=== PATIENT | female | born 1950 | race Caucasian/White ===

== ENCOUNTER 2018-05-14 16:37 | Inpatient (IN) | payer MEDICARE ==
[~2018-05-14] VITALS: Ht 165.1 cm; Wt 82.2 kg
[2018-05-14 17:16] LABS: BASOPHILS # (AUTO) 0.1 X10'3 (0-0.2); BASOPHILS % (AUTO) 0.7 % (0-1); EOSINOPHILS # (AUTO) 0.8 X10'3 (0-0.9); EOSINOPHILS % (AUTO) 7.4 % (0-6); HEMATOCRIT 36.4 % (35.0-45.0); HEMOGLOBIN 12.1 g/dl (12.0-16.0); MEAN CORPUSCULAR HEMOGLOBIN 27.5 PG (27.0-31.0); MEAN CORPUSCULAR HGB CONC 33.2 g/dL (33.0-36.5); MEAN CORPUSCULAR VOLUME 82.9 FL (78-98); MEAN PLATELET VOLUME 7.1 FL (7.4-10.4); MONOCYTES # (AUTO) 0.8 X10'3 (0-0.9); MONOCYTES % (AUTO) 7.5 % (2-12); NEUTROPHILS # (AUTO) 7.5 X10'3 (1.8-7.7); NEUTROPHILS % (AUTO) 66.4 % (42-75); PLATELET COUNT 425 X10'3 (140-440); RED BLOOD COUNT 4.39 X10'6 (4.20-5.60); WHITE BLOOD COUNT 11.3 X10'3 (4.5-11.0)
[2018-05-14 17:32] LABS: ALANINE AMINOTRANSFERASE 24 U/L (12-78); ALBUMIN 3.5 G/DL (3.4-5.0); ALBUMIN/GLOBULIN RATIO 0.9 (1.1-1.5); ALKALINE PHOSPHATASE 139 IU/L (46-116); ANION GAP 16 (8-16); ASPARTATE AMINO TRANSFERASE 19 U/L (10-37); BILIRUBIN,TOTAL 0.2 MG/DL (0.1-1.0); BLOOD UREA NITROGEN 24 MG/DL (7-18); CALCIUM 10.1 MG/DL (8.5-10.1); CHLORIDE 102 MMOL/L (99-107); CREATININE 1.09 MG/DL (0.40-0.90); GLUCOSE 181 MG/DL (70-104); POTASSIUM 4.4 MMOL/L (3.5-5.1); SODIUM 141 MMOL/L (135-145); TOTAL CARBON DIOXIDE 23.5 MMOL/L (24-32); TOTAL PROTEIN 7.4 G/DL (6.4-8.2); eGFR 50 ML/MIN
[2018-05-14 17:37] LABS: PARTIAL THROMBOPLASTIN TIME 26 SECONDS (22-32)
[2018-05-14] MEDS ORDERED: METF500T PO (20:59)
[2018-05-14] MEDS ORDERED: magnesium hydroxide 30ml (MOM) UD suspension PO PRN (22:30)
[2018-05-14] MEDS ORDERED: mag hydrox/Alum hydrox/simeth 30ml oral suspension PO PRN (22:30)
[2018-05-14] MEDS ORDERED: ondansetron/PF 4mg/2ml inj IV PRN (22:30)
[2018-05-14] MEDS ORDERED: acetaminophen 325mg tablet PO PRN (22:30)
[2018-05-14] MEDS ORDERED: dextrose ORAL solution 15 GM/59 ML bottle PO PRN ×2 (22:45)
[2018-05-14] MEDS ORDERED: glucagon, human recombinant 1mg kit SUBCUT PRN (22:45)
[2018-05-14] MEDS ORDERED: MESSAGE TO PHARMACY PO ONE (22:45)
[2018-05-14] MEDS ORDERED: dextrose 50%-water 50ml dispensing syringe IV PRN ×2 (22:45)
[2018-05-14] MEDS ORDERED: insulin Lispro (HumaLOG) vial - multi-dose SQ SCH (22:45)
--- NOTE | 2018-05-14 23:30 | NUR ---
ADMITTED A 67 Y.O. FEMALE FROM ER PER [facility] TO ROOM 346 B.
[2018-05-14 23:45] VITALS: BP 144/66
[2018-05-14 23:48] LABS: HEMOGLOBIN A1C 8.6 % (4.5-6.2)
[2018-05-15] VITALS (11 sets, daily range): BP systolic 123–149; BP diastolic 68–83
[2018-05-15 05:36] LABS: BASOPHILS # (AUTO) 0.1 X10'3 (0-0.2); BASOPHILS % (AUTO) 0.7 % (0-1); EOSINOPHILS # (AUTO) 0.9 X10'3 (0-0.9); EOSINOPHILS % (AUTO) 8.5 % (0-6); HEMOGLOBIN 11.6 g/dl (12.0-16.0); LYMPHOCYTES # (AUTO) 2.3 X10'3 (1.1-4.8); LYMPHOCYTES % (AUTO) 20.8 % (21-51); MEAN CORPUSCULAR HEMOGLOBIN 27.4 PG (27.0-31.0); MEAN CORPUSCULAR VOLUME 83.1 FL (78-98); MEAN PLATELET VOLUME 7.2 FL (7.4-10.4); MONOCYTES % (AUTO) 9.5 % (2-12); NEUTROPHILS # (AUTO) 6.6 X10'3 (1.8-7.7); NEUTROPHILS % (AUTO) 60.5 % (42-75); PLATELET COUNT 404 X10'3 (140-440); RED BLOOD COUNT 4.22 X10'6 (4.20-5.60); RED CELL DISTRIBUTION WIDTH 14.1 % (11.5-14.5)
[2018-05-15 05:48] LABS: ALANINE AMINOTRANSFERASE 23 U/L (12-78); ALBUMIN 3.3 G/DL (3.4-5.0); ALBUMIN/GLOBULIN RATIO 0.9 (1.1-1.5); ALKALINE PHOSPHATASE 138 IU/L (46-116); ANION GAP 9 (8-16); ASPARTATE AMINO TRANSFERASE 17 U/L (10-37); BILIRUBIN,TOTAL 0.3 MG/DL (0.1-1.0); BLOOD UREA NITROGEN 22 MG/DL (7-18); BUN/CREATININE RATIO 25.9 (6.6-38.0); CHLORIDE 105 MMOL/L (99-107); CHOL/HDL RATIO 7.1 (0.00-4.99); CHOLESTEROL 214 MG/DL (0-200); CREATININE 0.85 MG/DL (0.40-0.90); GLUCOSE 141 MG/DL (70-104); HDL CHOLESTEROL 30 MG/DL (35-60); LDL CHOLESTEROL 139 MG/DL (50-100); POTASSIUM 4.5 MMOL/L (3.5-5.1); SODIUM 141 MMOL/L (135-145); TOTAL CARBON DIOXIDE 27.4 MMOL/L (24-32); TOTAL PROTEIN 7.1 G/DL (6.4-8.2); TRIGLYCERIDES 267 MG/DL (20-135); eGFR 67 ML/MIN
--- NOTE | 2018-05-15 06:15 | NUR ---
Problems reprioritized. Patient report given, questions answered & plan of care reviewed with HOA MILLS.
--- NOTE | 2018-05-15 07:17 | NUR ---
Patient in room [facility]. I have received report from Harman MILLS and had the opportunity to ask questions and assume patient care.
[2018-05-15] MEDS: heparin, porcine 5000 units/ml vial SQ SCH ×2 (08:18→20:07)
[2018-05-15] MEDS ORDERED: regadenoson 0.4mg/5ml syringe IV ONE ×2 (09:15→10:00)
[2018-05-15] MEDS ORDERED: aminophylline 250mg/10ml inj. IV ONE (09:15)
[2018-05-15] MEDS ORDERED: nitroGLYCERIN 0.4mg SUBLingual tab SL PRN (09:25)
[2018-05-15] MEDS ORDERED: aminophylline inj. 10 ML IV ONE (10:00)
[2018-05-15] MEDS ORDERED: iohexol 300mg/ml 100ml inj. ONE (10:42)
--- NOTE | 2018-05-15 15:37 | NUR ---
DM consult: Pt with A1c 8.6 seen at bedside. Pt states she sees her general practitioner q 3 months, takes her meds per rx, and checks her BG levels fasting q morning with resulting numbers in the 140-150 range. Pt states her father last year so she stopped taking care of herself however is now back to managing her DM. Pt states she follows a DM diet at home by monitoring CHO intake and using the MyPlate method for PO intake. Pt given written and verbal DM ed with referral to outpatient DM class and RD contact information. Pt admit for CP secondary to metastatic disease. Pt previously NPO for stress test, diet just advanced to CHO controlled. Pt endorses a good appetite, states she's ALLERGIC to beef which will cause abdominal discomfort if eaten, and denies and difficulty chewing/swallowing or constipation/diarrhea. LBM 05/13. No edema or wounds. Will continue to follow. Recommendations: 1) Continue with CHO controlled diet 2) Wt per rx Addendum: 05/15/18 at [address] Amended: Links added.
[2018-05-15] MEDS: diatr meglu/diatrizoate 30ml oral sol.-(3 dose) bottle PO SCH (21:12)
[2018-05-15] MEDS: LORazepam 1 MG tablet PO PRN (21:12)
--- NOTE | 2018-05-15 22:03 | NUR ---
PT BG = 177 HOWEVER IT WAS AFTER SHE HAD TWO JUICES WITH HER GASTROVIEW SO I DIDNT START THE PROTOCOL
[2018-05-16] VITALS: BP 135/74
[2018-05-16 05:25] LABS: BASOPHILS % (AUTO) 0.4 % (0-1); EOSINOPHILS # (AUTO) 0.7 X10'3 (0-0.9); EOSINOPHILS % (AUTO) 7.9 % (0-6); HEMATOCRIT 36.5 % (35.0-45.0); LYMPHOCYTES # (AUTO) 1.9 X10'3 (1.1-4.8); LYMPHOCYTES % (AUTO) 22.9 % (21-51); MEAN CORPUSCULAR HEMOGLOBIN 27.3 PG (27.0-31.0); MEAN CORPUSCULAR HGB CONC 32.9 g/dL (33.0-36.5); MEAN CORPUSCULAR VOLUME 82.9 FL (78-98); MEAN PLATELET VOLUME 7.4 FL (7.4-10.4); MONOCYTES # (AUTO) 0.9 X10'3 (0-0.9); MONOCYTES % (AUTO) 10.6 % (2-12); NEUTROPHILS # (AUTO) 4.8 X10'3 (1.8-7.7); NEUTROPHILS % (AUTO) 58.2 % (42-75); PLATELET COUNT 373 X10'3 (140-440); RED CELL DISTRIBUTION WIDTH 14.1 % (11.5-14.5); WHITE BLOOD COUNT 8.4 X10'3 (4.5-11.0)
[2018-05-16 05:49] LABS: ALANINE AMINOTRANSFERASE 23 U/L (12-78); ALBUMIN 3.3 G/DL (3.4-5.0); ALBUMIN/GLOBULIN RATIO 0.8 (1.1-1.5); ALKALINE PHOSPHATASE 144 IU/L (46-116); ANION GAP 11 (8-16); ASPARTATE AMINO TRANSFERASE 20 U/L (10-37); BILIRUBIN,TOTAL 0.4 MG/DL (0.1-1.0); BLOOD UREA NITROGEN 16 MG/DL (7-18); CHLORIDE 103 MMOL/L (99-107); CREATININE 0.84 MG/DL (0.40-0.90); GLUCOSE 165 MG/DL (70-104); POTASSIUM 4.3 MMOL/L (3.5-5.1); SODIUM 138 MMOL/L (135-145); TOTAL CARBON DIOXIDE 23.6 MMOL/L (24-32); TOTAL PROTEIN 7.2 G/DL (6.4-8.2); eGFR 68 ML/MIN
--- NOTE | 2018-05-16 06:00 | NUR ---
Patient in room [facility]. I have received report from Tracie MILLS and had the opportunity to ask questions and assume patient care.
--- NOTE | 2018-05-16 06:00 | NUR ---
Patient in room [facility]. I have received report from Tracie MILLS and had the opportunity to ask questions and assume patient care.
--- NOTE | 2018-05-16 06:30 | NUR ---
Patient in room [facility]. I have received report from LINA Morgan and had the opportunity to ask questions and assume patient care. Patient resting comfortably at this time. Call light and items of frequent use in reach of patient.
--- NOTE | 2018-05-16 06:37 | NUR ---
Problems reprioritized. Patient report given, questions answered & plan of care reviewed with ARIEL. Addendum: 05/16/18 at 0637 by Umesh Monae RN Amended: Links added.
[2018-05-16] MEDS: diatr meglu/diatrizoate 30ml oral sol.-(3 dose) bottle PO SCH ×2 (07:25→09:36)
[2018-05-16] MEDS: heparin, porcine 5000 units/ml vial SQ SCH ×2 (07:27→20:14)
[2018-05-16 08:00] VITALS: BP 114/70
[2018-05-16] MEDS ORDERED: iohexol 300mg/ml 100ml inj. ONE (09:35)
--- NOTE | 2018-05-16 09:48 | NUR ---
Patient to CT via wheelchair with x1 staff. Patient alert and oriented and in no apparent distress at this time. Tele monitor notified.
[2018-05-16 11:00] VITALS: BP 119/83
--- NOTE | 2018-05-16 11:00 | NUR ---
Patient back to room from CT. Patient alert, oriented and in no apparent distress at this time. Will continue to monitor patient.
--- NOTE | 2018-05-16 12:23 | NUR ---
Problems reprioritized. Patient report given, questions answered & plan of care reviewed with Tracie MILLS.
--- NOTE | 2018-05-16 12:25 | NUR ---
Problems reprioritized. Patient report given, questions answered & plan of care reviewed with Tracie MILLS.
--- NOTE | 2018-05-16 18:15 | NUR ---
Problems reprioritized. Patient report given, questions answered & plan of care reviewed with LINA Morgan.
[2018-05-16 19:00] VITALS: BP 136/79
[2018-05-16] MEDS: LORazepam 1 MG tablet PO PRN (20:18)
[2018-05-17] VITALS (32 sets, daily range): BP systolic 81–152; BP diastolic 45–99
[2018-05-17 05:42] LABS: ALANINE AMINOTRANSFERASE 24 U/L (12-78); ALBUMIN 3.3 G/DL (3.4-5.0); ALBUMIN/GLOBULIN RATIO 0.8 (1.1-1.5); ALKALINE PHOSPHATASE 146 IU/L (46-116); ANION GAP 10 (8-16); ASPARTATE AMINO TRANSFERASE 17 U/L (10-37); BILIRUBIN,TOTAL 0.5 MG/DL (0.1-1.0); BLOOD UREA NITROGEN 20 MG/DL (7-18); BUN/CREATININE RATIO 24.1 (6.6-38.0); CALCIUM 10.1 MG/DL (8.5-10.1); CHLORIDE 102 MMOL/L (99-107); CREATININE 0.83 MG/DL (0.40-0.90); GLUCOSE 173 MG/DL (70-104); POTASSIUM 4.1 MMOL/L (3.5-5.1); SODIUM 138 MMOL/L (135-145); TOTAL CARBON DIOXIDE 25.8 MMOL/L (24-32); TOTAL PROTEIN 7.3 G/DL (6.4-8.2); eGFR 69 ML/MIN
[2018-05-17 05:43] LABS: BASOPHILS % (AUTO) 0.4 % (0-1); EOSINOPHILS # (AUTO) 0.7 X10'3 (0-0.9); EOSINOPHILS % (AUTO) 7.2 % (0-6); HEMATOCRIT 37.1 % (35.0-45.0); HEMOGLOBIN 12.3 g/dl (12.0-16.0); LYMPHOCYTES # (AUTO) 1.7 X10'3 (1.1-4.8); LYMPHOCYTES % (AUTO) 17.4 % (21-51); MEAN CORPUSCULAR HEMOGLOBIN 27.4 PG (27.0-31.0); MEAN CORPUSCULAR HGB CONC 33.2 g/dL (33.0-36.5); MEAN CORPUSCULAR VOLUME 82.4 FL (78-98); MEAN PLATELET VOLUME 7.3 FL (7.4-10.4); NEUTROPHILS # (AUTO) 6.4 X10'3 (1.8-7.7); PLATELET COUNT 393 X10'3 (140-440); RED BLOOD COUNT 4.51 X10'6 (4.20-5.60); RED CELL DISTRIBUTION WIDTH 13.7 % (11.5-14.5); WHITE BLOOD COUNT 9.8 X10'3 (4.5-11.0)
--- NOTE | 2018-05-17 06:43 | NUR ---
Patient in room [facility]. I have received report from Eddie and had the opportunity to ask questions and assume patient care.
--- NOTE | 2018-05-17 06:55 | NUR ---
Problems reprioritized. Patient report given, questions answered & plan of care reviewed with PAM. Addendum: 05/17/18 at 0656 by Umesh Monae RN Amended: Links added.
[2018-05-17] MEDS ORDERED: fentaNYL/PF 50MCG/1 ML 2ML syringe IV PRN (08:15)
[2018-05-17] MEDS ORDERED: midazolam 2 mg/2 ml injection IV PRN (08:15)
[2018-05-17] MEDS ORDERED: fentaNYL/PF 50MCG/1 ML 2ML syringe ONE (08:19)
[2018-05-17] MEDS ORDERED: midazolam 2 mg/2 ml injection ONE (08:19)
--- NOTE | 2018-05-17 11:51 | NUR ---
Pt refuses insulin administration.
[2018-05-17] MEDS ORDERED: LIDOcaine 1%/PF 5ML 10 MG/ML VIAL ONE (17:59)
--- NOTE | 2018-05-17 18:23 | NUR ---
Problems reprioritized. Patient report given, questions answered & plan of care reviewed with
[2018-05-17] MEDS ORDERED: HYDROcodone/acetaminophen 5mg/325mg tablet PO PRN ×2 (19:10)
[2018-05-17] MEDS ORDERED: morphine 4 MG/ML inj SYRINge IV PRN (19:10)
[2018-05-17] MEDS: heparin, porcine 5000 units/ml vial SQ SCH (20:00)
[2018-05-17] MEDS: LORazepam 1 MG tablet PO PRN (20:18)
--- NOTE | 2018-05-17 21:03 | NUR ---
PT REFUSED ACCUCHECK Addendum: 05/18/18 at 0103 by Umesh Monae RN Amended: Links added.
[2018-05-18] VITALS: BP 138/80
[2018-05-18 05:08] LABS: BASOPHILS % (AUTO) 0.2 % (0-1); EOSINOPHILS # (AUTO) 0.4 X10'3 (0-0.9); EOSINOPHILS % (AUTO) 3.8 % (0-6); HEMATOCRIT 36.8 % (35.0-45.0); LYMPHOCYTES # (AUTO) 1.5 X10'3 (1.1-4.8); LYMPHOCYTES % (AUTO) 15.4 % (21-51); MEAN CORPUSCULAR HEMOGLOBIN 27.1 PG (27.0-31.0); MEAN CORPUSCULAR HGB CONC 32.7 g/dL (33.0-36.5); MEAN CORPUSCULAR VOLUME 83.1 FL (78-98); MEAN PLATELET VOLUME 7.4 FL (7.4-10.4); MONOCYTES # (AUTO) 0.8 X10'3 (0-0.9); MONOCYTES % (AUTO) 8.7 % (2-12); NEUTROPHILS % (AUTO) 71.9 % (42-75); PLATELET COUNT 383 X10'3 (140-440); RED BLOOD COUNT 4.43 X10'6 (4.20-5.60); RED CELL DISTRIBUTION WIDTH 13.8 % (11.5-14.5); WHITE BLOOD COUNT 9.7 X10'3 (4.5-11.0)
[2018-05-18 05:27] LABS: ALANINE AMINOTRANSFERASE 21 U/L (12-78); ALBUMIN 3.2 G/DL (3.4-5.0); ALBUMIN/GLOBULIN RATIO 0.8 (1.1-1.5); ALKALINE PHOSPHATASE 139 IU/L (46-116); ANION GAP 10 (8-16); ASPARTATE AMINO TRANSFERASE 15 U/L (10-37); BILIRUBIN,TOTAL 0.5 MG/DL (0.1-1.0); BLOOD UREA NITROGEN 24 MG/DL (7-18); BUN/CREATININE RATIO 28.2 (6.6-38.0); CALCIUM 10.1 MG/DL (8.5-10.1); CHLORIDE 104 MMOL/L (99-107); CREATININE 0.85 MG/DL (0.40-0.90); GLUCOSE 158 MG/DL (70-104); SODIUM 141 MMOL/L (135-145); TOTAL CARBON DIOXIDE 26.7 MMOL/L (24-32); TOTAL PROTEIN 7.1 G/DL (6.4-8.2); eGFR 67 ML/MIN
--- NOTE | 2018-05-18 06:45 | NUR ---
Patient in room [facility]. I have received report from Eddie MILLS and had the opportunity to ask questions and assume patient care.
--- NOTE | 2018-05-18 07:01 | NUR ---
Problems reprioritized. Patient report given, questions answered & plan of care reviewed with MARLEN. Addendum: 05/18/18 at 0702 by Umesh Monae RN Amended: Links added.
[2018-05-18 07:50] VITALS: BP 142/82
[2018-05-18] MEDS: heparin, porcine 5000 units/ml vial SQ SCH (08:00)
[2018-05-18 11:58] VITALS: BP 141/78
--- NOTE | 2018-05-18 13:23 | NUR ---
Patient refused blood glucose check at 1200.
--- NOTE | 2018-05-18 18:10 | NUR ---
Patient discharged home with all belongings sent. Patient will follow up out patient with her primary care provider about the biopsy results. IV removed.
== END 2018-05-18 18:20 | disposition home or self-care (01) | DRG 181 ==
LOC: ER 16:37 → ED HOLD 22:31 → SUR 3N 23:29
PROVIDERS: ADMIT Internal Medicine; ATTEND Family Medicine
PROC: 4A02XM4 Measurement of Cardiac Total Activity, External Approach (ICD-10-PCS; 2018-05-15)
PROC: 3E033HZ Introduction of Radioactive Substance into Peripheral Vein, Percutaneous Approach (ICD-10-PCS; 2018-05-15)
PROC: BW241ZZ Computerized Tomography (CT Scan) of Chest and Abdomen using Low Osmolar Contrast (ICD-10-PCS; 2018-05-15)
PROC: BW211ZZ Computerized Tomography (CT Scan) of Abdomen and Pelvis using Low Osmolar Contrast (ICD-10-PCS; 2018-05-16)
PROC: 0W9930Z Drainage of Right Pleural Cavity with Drainage Device, Percutaneous Approach (ICD-10-PCS; principal; 2018-05-17)
PROC: 0BBK3ZX Excision of Right Lung, Percutaneous Approach, Diagnostic (ICD-10-PCS; 2018-05-17)
DX: C34.91 Malignant neoplasm of unspecified part of right bronchus or lung (principal); C79.51 Secondary malignant neoplasm of bone; E11.9 Type 2 diabetes mellitus without complications; G89.3 Neoplasm related pain (acute) (chronic); E78.00 Pure hypercholesterolemia, unspecified; I10 Essential (primary) hypertension; Z90.49 Acquired absence of other specified parts of digestive tract; Z88.0 Allergy status to penicillin; Z91.018 Allergy to other foods; Z79.899 Other long term (current) drug therapy; Z79.84 Long term (current) use of oral hypoglycemic drugs
CPT/HCPCS: 10160; 32405; 32557; 36415; 71045; 71260; 74177; 77012; 78452; 80053; 80061; 82948; 83036; 84484; 85025; 85610; 85730; 87070; 88305; 88341; 88342; 93005; 99152; 99153; 99285; A9500; G0378; J0280; J1644; J2001; J2250; J3010; Q9963; Q9967